=== PATIENT | female | born 1980 | race Caucasian/White ===

== ENCOUNTER 2024-08-10 07:37 | Emergency (ER) | payer BC, SELFPAY ==
[2024-08-10 07:47] VITALS: BP 146/86; PULSE 101; RESP 18; O2SAT 99; BMI 21.3
--- NOTE | 2024-08-10 08:05 | ED_ITS ---
HPI - Female Genitourinary General Chief complaint: Urogenital Problems, Female Stated complaint: Urine retention Time Seen by Provider: 08/10/24 07:50 History of Present Illness HPI Narrative: This 43-year-old female comes in with urinary retention. She states that she has only been able to void very small amounts over the past day or so. She states that her abdomen is distended and uncomfortable. She has had some more minor difficulties of passing urine in the past. She has had 5 children birthed vaginally. Related Data Previous Rx's ?Medication ?Instructions ?Recorded catheter 18 Fr #10 ea 08/10/24 Allergies Allergy/AdvReac Type Severity Reaction Status Date / Time No Known Drug Allergies Allergy Verified 08/10/24 07:47 Review of Systems Status of ROS: Reports: 10 or more systems reviewed and unremarkable except as noted in History and below Narrative: Constitutional: No fevers, no weight gain or loss. Eyes: No discharge. No vision changes. HENT: No congestion, no sore throat, no ear pain. Cardiovascular: No chest pain, no palpitations. Respiratory: No shortness of breath, no wheezes, no cough. Gastrointestinal: No vomiting, no diarrhea. Abdominal distension and discomfort. Genitourinary: Urinary retention. Musculoskeletal: Normal range of motion. Skin: No rashes, no pruritis. Neurological: No dizziness, weakness, sensory change, speech change. Endo/Heme/Allergies: No bruising or bleeding. No polydipsia. Pysch: no suicidality, no anxiety, no insomnia. All other systems reviewed and are negative. Exam Narrative: Exam Narrative: Constitutional: Well-developed, well-nourished, no acute distress. HEENT: Normocephalic, atraumatic. Neck: Normal range of motion. Nontender. Supple. Heart: Regular. No murmurs. Normal rate. Intact distal pulses. Lungs: Clear to auscultation. No chest discomfort. No wheezes, rhonchi, or rales. Abdomen: Normal bowel sounds. Distended lower abdomen with tenderness. No rebound tenderness. Genitalia: Deferred. Back: No midline tenderness. Normal range of motion. Extremities: Normal range of motion. No injury. Skin: Intact. No rash. Warm. No erythema or pallor. Neurologic: No altered sensation. No weakness. Alert and oriented. Psychiatric: No suicidality. No anxiety or depression. No insomnia. Nursing notes and vitals signs are reviewed. Const: Vital Signs, click to edit/add: Vital Signs - 24 hr 08/10/24 07:47 Pulse Rate [Pulse Oximeter] 101 H Respiratory Rate 18 Blood Pressure [Ri ght Upper Arm] 146/86 H Pulse Oximetry 99 Oxygen Delivery Me thod Room Air Course Vital Signs Vital signs: Initial Vital Signs Pulse Rate 101 H 08/10/24 07:47 Respiratory Rate 18 08/10/24 07:47 Blood Pressure 146/86 H 08/10/24 07:47 Blood Pressure Mean 106 H 08/10/24 07:47 Pulse Oximetry 99 08/10/24 07:47 Oxygen Delivery Method Room Air 08/10/24 07:47 Vital Signs Pulse Rate 101 H 08/10/24 07:47 Respiratory Rate 18 08/10/24 07:47 Blood Pressure 146/86 H 08/10/24 07:47 Pulse Oximetry 99 08/10/24 07:47 Oxygen Delivery Method Room Air 08/10/24 07:47 Pulse Rate 101 H 08/10/24 07:47 Respiratory Rate 18 08/10/24 07:47 Blood Pressure 146/86 H 08/10/24 07:47 Pulse Oximetry 99 08/10/24 07:47 Oxygen Delivery Method Room Air 08/10/24 07:47 MDM - Female Genitourinary MDM Narrative Medical decision making narrative: This patient comes in with urinary retention and states that she has been having some issues with passing urine but not like this. She has had 5 children the the youngest of which is 11 years old. She likely has a hyper mobile bladder. Urinalysis shows no sign of infection. A straight catheter was placed and allowed to drain a total of 270 mL but a bladder scan showed still about 300 mL yet in the bladder. A Blue catheter was then placed and her bladder was adequately drained. I did speak with OBGYN physician on-call who recommended straight catheters to be used as needed and a clinic evaluation for assessing what is happening with her bladder. The Blue catheter was removed for discharge. Lab Data Labs: Lab Results 08/10/24 Range/Units 08:04 Urine Color Yellow (Yellow) Urine Appearance Clear (Clear) Urine pH 6.5 (5.0-8.5) Ur Specific Yoder 1.010 (1.000-1.030) Urine Protein Negative (Negative) Urine Glucose (UA) Negative (Negative) Urine Ketones Negative (Negative) Urine Blood Negative (Negative) Urine Nitrite Negative (Negative) Urine Bilirubin Negative (Negative) Urine Urobilinogen 0.2 (0.2-1.0) Ur Leukocyte Esterase Negative (Negative) Urine RBC 0-2 (0-2) Urine WBC 0-2 (0-5) Ur Squamous Epith Cells Few (None-Few) Urine Bacteria None (None) Discharge Plan Discharge Clinical Impression: Acute urinary retention Patient Disposition: Home, Self-Care Condition: Improved Additional Instructions: Use straight catheters for ongoing urinary retention if needed. Follow up with OBGYN clinic for further evaluation and treatment. Call [phone] for appointment. Return if worsening. Prescriptions: New (DME) catheter 18 Fr misc See Rx Instructions .Route Qty: 10 2RF Rx Instructions: As directed Follow Up/Referrals: Ekta Gracia MD [Primary Care Provider] - Stand Alone Forms: [facility] Info Instructions
--- OUTSIDE RECORDS SUMMARY | 2024-08-10 08:15 | XMS_ITS | Data Portability ---
Author Organization [facility] Address [address] [place] [id number] Assessment Encounter Date Assessment Date Assessment LastModified by Organization Details LastModified Time 02/26/2024 02/26/2024 Time spent reviewing the patient s medical record, diagnostic studies, performing a focused history and physical exam, educating the patient regarding the natural history of disease as it pertains to the patient, discussing treatment options and alternatives, medical decision making, and chartin-59 minutes. Not available 03/02/2024 13:53:27 Plan of Treatment Reminders Order Date Submit Date Provider Last Modified By Organization Details Last Modified Time Details Appointments None record ed. Lab None record ed. Referral None record ed. Procedures None record ed. Surgeries None record ed. Imaging None record ed. Medication Orders None record ed. Patient TargetsNo targets recorded. Patient InstructionsNo instructions recorded. Reason for Referral None Reported. Procedures Surgical History Date Name Laterality Status Provider Name and Address Organization Details Recorded Time Plastic surgery completed Kerri Cornejo MD [address] [place], [address], [facility] 02/26/2024 14:04:56 Tubal ligation completed Kerri Cornejo MD [address] [place], [address], [facility] 02/26/2024 14:04:56 Imaging Results None recorded. Procedure Notes None recorded. Medical Equipment None Reported. Medications Name Sig Start Date Stop Date Status Note LastModified by Organization Details LastModified Time ofloxacin 0.3 % eye drops 02/25 completed Not Available Not Available Not Available fluconazole 150 mg tablet TAKE 1 TABLET BY MOUTH A ONE TIME DOSE . MAY TAKE 2ND TABLET 2 DAYS LATER IF SYMPTOMS ARE STILL PRESENT. 02/25 completed Not Available Not Available Not Available metronidazo le 500 mg tablet TAKE 1 TABLET BY MOUTH TWICE A DAY FOR 7 DAYS 02/25 completed Not Available Not Available Not Available dextroamphe tamine-amph etamine ER 30 mg 24hr capsule,ext end release active Not Available Not Available Not Available dextroamphe tamine-amph etamine 5 mg tablet active Not Available Not Available No t Available dextroamphe tamine-amph etamine ER 15 mg 24hr capsule,ext end release 02/25 completed Not Available Not Available Not Available nitrofurant oin monohydrate /macrocryst als 100 mg capsule TAKE 1 CAPSULE BY MOUTH TWICE DAILY 02/25 completed Not Available Not Available Not Available Vitals None Recorded Social History Question Answer Notes LastModified by Organizat ion Details LastModified Time Tobacco Smoking Status Never Smoker Kerri Cornejo MD [address] [place], [address], [facility] - [facility] 02/26/2024 14:04:46 What Is Your Level Of Alcohol Consumption? Occasional Information not available 02/26/2024 How Many Times Per Week Do You Consume Alcohol? Less Than 1 Time Per Week Information not available 02/26/2024 Are You Currently Employed? 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 3-4 Times Per Week Information not available 02/26/2024 Sex: Unknown Functional Status Question Answer Note LastModified by Organization D etails LastModified Time What is your exercise level? Moderate Information not available 02/26/2024 Mental Status None recorded. Family History Relationship Description Onset Age of this Age Resolved Age Notes LastModified by Organization Details LastModified Time Mother Cerebrovascu lar accident Not available 14:03:30 Mother Varicose veins of lower extremity Not available 2023 14:03:30 Medical History Condition Response Varicose Veins Y Gynecological History Statement/Question Response How many childrens do you have? 5 Number of Miscarriages None Number of Pregnancies 5 Are you or planning to become p regnant? N Are you ? N Obstetrics History GPAL:G 0 P 0 0 0 0 Past Encounters Encounter ID Performer Location Encounter Start Date Encounter Closed Date Diagnosis/Indication Diagnosis SNOMED-CT Code Diagnosis ICD10 Code Diagnosis Note [id number] Kerri Cornejo MD [facility] [address] [place] [address] 02/26/2024 13:56:05 03/03/2024 04:08:26 Peripheral venous insufficiency 35990178 I87.2 DUPLEX ULTRASOUND FINDINGS: US does not reveal venous insufficie ncy today, which may be a reflection of relative dehydratio n. The deep veins are patent with normal compressib ility and augmentati on. {{Right Le ft Bilater al*}} deep venous insufficie ncy is {{absent* present in the common femoral vein prese nt in the femoral vein prese nt in the popliteal vein prese nt in the femoral and popliteal veins pres ent in the common femoral and femoral veins pres ent in the common femoral and popliteal veins pres ent in the common femoral, femoral and popliteal veins}}. There is adequate venous capacity of the deep system. [id number] MD Earnest Corral [address] [place] [address] 02/26/2024 13:56:12 03/02/2024 13:58:04 Peripheral venous insufficiency 81868880 I87.2 DUPLEX ULTRASOUND FINDINGS: US does not reveal venous insufficie ncy today, which may be a reflection of relative dehydratio n. The deep veins are patent with normal compressib ility and augmentati on. {{Right Le ft Bilater al*}} deep venous insufficie ncy is {{absent* present in the common femoral vein prese nt in the femoral vein prese nt in the popliteal vein prese nt in the femoral and popliteal veins pres ent in the common femoral and femoral veins pres ent in the common femoral and popliteal veins pres ent in the common femoral, femoral and popliteal veins}}. There is adequate venous capacity of the deep system. ASSESSMENT : 1)The patient has had previous treatment for bilateral CVI and has persistent symptoms c/w CVI. 2) Normal deep venous system without DVT 3) The patient has progressio n of symptoms despite conservati ve measures including: avoiding long periods of sitting/st anding, regular daily exercise including moderate walking, weight control, OTC analgesics and leg elevation. PLAN: 1)Begin {{6* 12}} week trial of conservati ve therapy with the addition of {{GCS 20-30mm Hg* OTC analgesics and GCS 20-30mm Hg weight loss and GCS 20-30mm Hg OTC analgesics , weight loss and GCS 20-30mm Hg}}. GCS Rx provided today.Repe at US when the patient is hydrated to better evaluate for recurrent CVI.The patient has expressed an interest in ambulatory phlebectom y to avoid the hyperpigme ntation she experience d with her prior treatments . Health Concerns Section Related Observation LastModified by Organization Detai ls LastModified Time None Recorded Concern Status LastModified by Organization Details LastModified Time None Recorded Advance Directives Directive None Recorded Payers Encounter Date Sequence Insurance Name Policy Number Policy Godfrey Covered Member ID Godfrey Member ID Guarantor Name 02/26/2024 1 [employer] [id number] Emili Lopez [id number] Emili Lopez 02/26/2024 1 [employer] [id number] Emilikhanh Silvaon [id number] Emili Lopez Notes Date Note Type Note Provider Name and Address Organization Details Recorded Time 02/26/2024 text/html PVC (Q4U) InitialReported bypatient.Please select the location of your concernRight Leg: Leg; Left Leg: Leg I have had symptoms:More than 5 year Have you ever experienced any of the following symptoms?Aching;Cramp ing;Heaviness;Itching ;Burning;Spider veins;Bulging veins When do the symptoms occur?Standing up;After exercise What activities of daily living do the symptoms affect?Sleep;Exercise ;Work;Chores;Leisure Activities What relieves your symptoms?Avoidance of long periods of sitting/standing; Leg elevation Do you wear compression stockings to relieve your symptoms?No Have you ever had a previous vein evaluation or treatment?Yes Indicate which prior vein treatments you have had:Sclerotherapy Injections Have you ever been diagnosed with the following?None Kerri Cornejo MD [address] [place], [address], [place] - [facility] 03/02/2024 13:55:13 02/26/2024 text/html The patient is a {{ 43#}}yo {{male female*}} who presents with complaints of {{Right Left Bilatera l*}} lower extremity varicose veins and increasing symptoms for the past {{1 2 3 4 5* 10 15 20 more than 1 many}} {{weeks months years* year}}. The patient {{has had* denies}} previous {{right left bilatera l* >}} treatment for chronic venous disease with VCA in 2021. Symptoms include: pain, aching, cramping, tired legs, heavy legs, itching, burning, recurring swelling, spider veins, surface veins. There is no history of DVT, SVT, ulceration, cellulitis or phleborrhagia. Symptom location: {{Right Left Bilatera l*}}, {{ankle/leg* ankle/le g/knee thigh ankle/le g/thigh}} Symptom severity: {{moderately severe* severe mild}} Symptoms occur with: prolonged sitting and standing, sleeping, after activity/exercise, and are worse later in the day. ADLs affected by symptoms: -Sleep: interfere with patient's ability to fall asleep and cause patient to awaken from sleep frequently. -Exercise/activity: limit ability to exercise, including walking. -Work: Needs to take frequent breaks to walk and/or elevate legs. -Chores: Avoids chores or needs to take breaks to walk and/or elevate legs. -Leisure activities: Avoids activities or needs to take breaks to walk and/or elevate. Conservative measures implemented without relief of symptoms: -avoidance of prolonged periods of sitting or standing, -regular exercise including moderate daily walking, -leg elevation, -weight control, -GCS 20-30 mmHg {{more than 6 wks more than 3 months not worn previously* OTC only}} {{Rx provided today* Rx provided at screening Rx provided at consultation Rx provided at time of previous vein treatment Rx provided at time of previous vein evaluation}} -OTC analgesics:{{none ibu profen prn* Tylenol prn iboprofen and Tylenol prn Naproxen prn}}. Kerri Cornejo MD [address] [place], [address], [place] - [facility] 03/02/2024 13:53:43 OBGyn Episode No OBEpisode recorded.
--- OUTSIDE RECORDS SUMMARY | 2024-08-10 08:15 | XMS_ITS ---
Author Organization [facility] Address [address] [place] [address] Care Team Providers Care Assembler Movement Name Role Phone None, No PCP Primary Care Provider Alfredo Washington Unavailable [phone] REASON FOR VISIT stress incontinence Encounters Encounter Location Date Provider Diagnosis [facility] [address] [place] [address] 10/27/2023 Alfredo Gutiérrez Plan Of Treatment No Information Progress Notes * GREGORYRowena DONISeDOB:[birth year] (43 yo F)Acc No.[id number]:10/27/2023 Patient: Emili SHELTON Provider: Iggy GUTIÉRREZ MD :1980 A ge:43 Y S ex:Female Date:10/27/2023 Address:[address] [place] Pcp:No PCP None Subjective: * Chief Complaints: * 1 . Stress incontinence. 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
--- OUTSIDE RECORDS SUMMARY | 2024-08-10 08:16 | XMS_ITS | Patient Health Record ---
Author Organization [facility] Address [address] [place] [address] Care Team Providers Care Knife Finisher Name Role Phone None, No PCP Primary Care Provider Alfredo Washington Unavailable [phone] Reason For Referral No Information Plan Of Treatment No Information Insurance Providers Payer Name Payer Address Payer Phone Subscriber Number Group Number Insured Name Patient Relationship to Insured Coverage Start Date Coverage End Date [facility] Commercial (Ins. Bill) [address] [address] [place], [place] [id number] Emili Lopez Self - patient is the insured
[2024-08-10 08:33] LABS: Appearance Urine Clear (Clear); Bilirubin Urine Negative (Negative); Blood Urine Negative (Negative); Color Urine Yellow (Yellow); Glucose Urine Negative (Negative); Ketones Urine Negative (Negative); Leukocyte Esterase Urine Negative (Negative); Nitrite Urine Negative (Negative); Protein Urine Negative (Negative); Urobilinogen Urine 0.2 (0.2-1.0); pH Urine 6.5 (5.0-8.5)
[2024-08-10 08:55] LABS: RBC Urine 0-2 (0-2); Squamous Epithelial Cell Urine Few (None-Few); WBC Urine 0-2 (0-5)
== END 2024-08-10 10:16 | disposition home or self-care (01) ==
PROVIDERS: Emergency Provider Emergency Medicine Emergency Medical Services; PCP Family Medicine
DX: R33.9 Retention of urine, unspecified (principal)
CPT/HCPCS: 51702; 81001; 99283; 99284